=== PATIENT | male | born 1970 | race African-American/Black ===

== ENCOUNTER 2023-06-17 21:39 | Inpatient (IN) | payer OTHER ==
[2023-06-17 22:46] VITALS: BMI 37.5
[2023-06-17] MEDS ORDERED: BENZONATATE 200 MG CAPSULE PO PRN (23:33)
[2023-06-17] MEDS ORDERED: LOPERAMIDE HCL 2 MG CAPSULE PO PRN (23:33)
[2023-06-17] MEDS ORDERED: MAGNESIUM HYDROX 2400MG/30ML ORAL SUSPENSION 30 ML CUP PO PRN (23:33)
[2023-06-17] MEDS ORDERED: P-EPHED 60MG/TRIPROLIDI 2.5MG TABLET PO PRN (23:33)
[2023-06-17] MEDS ORDERED: BENZOCAINE/MENTHOL (CHLORASEPTIC ) LOZENGE MM PRN (23:33)
[2023-06-17] MEDS ORDERED: IBUPROFEN 400 MG TABLET (FP) PO PRN (23:33)
[2023-06-17] MEDS ORDERED: ACETAMINOPHEN 325 MG TABLET (FP) PO PRN (23:33)
[2023-06-17] MEDS ORDERED: POLYETHYLENE GLYCOL (HEALTHYLAX) 3350 17 GM PACKET PO PRN (23:33)
[2023-06-17] MEDS ORDERED: ONDANSETRON *ODT* 4 MG TABLET SL PRN (23:33)
[2023-06-17] MEDS ORDERED: guaiFENesin 600 MG TABLET.ER (FP) PO PRN (23:33)
[2023-06-17] MEDS ORDERED: BISMUTH SUBSALICYLATE 524 MG/30 ML PO PRN (23:33)
[2023-06-17] MEDS ORDERED: DICYCLOMINE HCL 10 MG CAPSULE PO PRN (23:33)
[2023-06-17] MEDS ORDERED: MAG HYDROX/AL HYDROX/SIMETH 30 ML UNIT-DOSE CUP PO PRN (23:33)
[2023-06-18] MEDS: METHOCARBAMOL 500 MG TABLET PO PRN ×2 (01:51→11:58)
[2023-06-18] MEDS: hydrOXYzine PAMOATE 25 MG CAPSULE (FP) PO PRN ×2 (01:51→10:16)
[2023-06-18] MEDS: LIDOCAINE PATCH REMOVAL MC SCH ×2 (01:54→22:06)
[2023-06-18] MEDS: PRENATAL VITAMINS W/ FOLIC ACID TABLET (FP) PO SCH (09:45)
[2023-06-18] MEDS: LIDOCAINE 5% TOPICAL PATCH TP SCH (09:45)
[2023-06-18] MEDS ORDERED: chlordiazePOXIDE HCL 25 MG CAPSULE PO PRN (10:06)
[2023-06-18] MEDS ORDERED: PATIENT'S OWN MEDICATION (NON-FORMULARY) (Lisinopril [Prinivil -] 40 MG Tablet) PO SCH (10:15)
[2023-06-18] MEDS: HYDROCHLOROTHIAZIDE 25 MG TABLET (FP) PO SCH (10:16)
[2023-06-18] MEDS: chlordiazePOXIDE HCL 25 MG CAPSULE PO SCH ×3 (10:17→22:03)
[2023-06-18] MEDS: FAMOTIDINE 20 MG TABLET PO SCH (10:34)
[2023-06-18] MEDS: IBUPROFEN 600 MG TABLET (FP) PO PRN (11:58)
[2023-06-18 12:21] LABS: HEMATOCRIT 33.2 % (35.4-49); HEMOGLOBIN 10.8 GM/dL (11.7-16.9); MCHC 32.4 g/dl (32.0-35.9); MEAN CELL VOLUME 95.8 fl (80-96); MEAN PLT VOLUME 7.5 fl (7.5-11.1); PLATELET COUNT 365 10^3/uL (134-434); RBC 3.47 M/mm3 (4.00-5.60); RDW 16.1 % (11.9-15.9); WHITE BLOOD COUNT 5.1 K/mm3 (4.0-10.0)
[2023-06-18 12:26] LABS: CHLORIDE 101 mmol/L (98-107); POTASSIUM 3.6 mmol/L (3.5-5.1); SODIUM 140 mmol/L (136-145)
[2023-06-18 12:43] LABS: ALBUMIN 3.9 g/dl (3.4-5.0); ANION GAP 14 mmol/L (4-13); BLOOD UREA NITROGEN 7.7 mg/dL (7-18); CO2 25 mmol/L (21-32); GLUCOSE,RANDOM 127 mg/dL (74-106)
[2023-06-18 12:46] LABS: CREATININE 0.9 mg/dL (0.55-1.3); SGOT/AST 41 U/L (15-37); SGPT/ALT 25 U/L (13-61)
[2023-06-18 12:48] LABS: TOT PROT 8.6 g/dl (6.4-8.2)
[2023-06-18 12:49] LABS: ALK PHOS 103 U/L (45-117)
[2023-06-18 12:55] LABS: CALCIUM 6.3 mg/dL (8.5-10.1)
[2023-06-18] MEDS: CALCIUM 250MG/VIT-D 125 UNITS 1 COMBO TABLET PO SCH ×2 (14:54→22:03)
[2023-06-18] MEDS: metFORMIN HCL 500 MG TABLET (FP) PO SCH (17:30)
[2023-06-18 18:17] LABS: EPI CELLS 2 /uL (0-25.1); HYALINE CASTS 0 /uL (0-3.1); PH,URINE 5.5 (5.0-8.0); URINE APPEARANCE CLEAR; URINE BACTERIA 7 /uL (0-1359); URINE BILIRUBIN NEGATIVE (NEGATIVE); URINE COLOR YELLOW; URINE GLUCOSE (UA) NEGATIVE (NEGATIVE); URINE KETONE TRACE (NEGATIVE); URINE LEUK ESTERASE NEGATIVE (NEGATIVE); URINE NITRITE NEGATIVE (NEGATIVE); URINE PROTEIN 1+ (NEGATIVE); URINE RBC 4 /uL (0-23.9); URINE WBC 4 /uL (0-25.8)
[2023-06-18] MEDS: ATORVASTATIN CA 10 MG TABLET (FP) PO SCH (22:03)
[2023-06-18] MEDS: THIAMINE HCL 100 MG TABLET (FP) PO SCH (22:03)
[2023-06-18] MEDS: MELATONIN 5 MG TABLETS PO SCH (22:04)
[2023-06-19] MEDS: hydrOXYzine PAMOATE 25 MG CAPSULE (FP) PO PRN (01:23)
[2023-06-19] MEDS: METHOCARBAMOL 500 MG TABLET PO PRN (02:31)
[2023-06-19] MEDS: chlordiazePOXIDE HCL 25 MG CAPSULE PO SCH ×4 (05:55→23:59)
[2023-06-19] MEDS: metFORMIN HCL 500 MG TABLET (FP) PO SCH ×2 (06:03→17:04)
[2023-06-19] MEDS: PRENATAL VITAMINS W/ FOLIC ACID TABLET (FP) PO SCH (10:04)
[2023-06-19] MEDS: CALCIUM 250MG/VIT-D 125 UNITS 1 COMBO TABLET PO SCH ×2 (10:04→22:19)
[2023-06-19] MEDS: HYDROCHLOROTHIAZIDE 25 MG TABLET (FP) PO SCH (10:04)
[2023-06-19] MEDS: LIDOCAINE 5% TOPICAL PATCH TP SCH (10:04)
[2023-06-19] MEDS: FAMOTIDINE 20 MG TABLET PO SCH (10:04)
[2023-06-19] MEDS ORDERED: diphenhydrAMINE HCL 50 MG CAPSULE PO PRN (11:19)
[2023-06-19] MEDS: amLODIPine BESYLATE 5 MG TABLET (FP) PO SCH (12:13)
[2023-06-19] MEDS: THIAMINE HCL 100 MG TABLET (FP) PO SCH (22:19)
[2023-06-19] MEDS: MELATONIN 5 MG TABLETS PO SCH (22:19)
[2023-06-19] MEDS: ATORVASTATIN CA 10 MG TABLET (FP) PO SCH (22:22)
[2023-06-19] MEDS: LIDOCAINE PATCH REMOVAL MC SCH (22:22)
[2023-06-20] MEDS ORDERED: chlordiazePOXIDE HCL 10 MG CAPSULE PO PRN
[2023-06-20] MEDS: chlordiazePOXIDE HCL 10 MG CAPSULE PO SCH ×4 (05:23→22:08)
[2023-06-20] MEDS: metFORMIN HCL 500 MG TABLET (FP) PO SCH ×2 (06:26→16:44)
[2023-06-20] MEDS: LIDOCAINE 4% PATCH TP SCH (10:31)
[2023-06-20] MEDS: PRENATAL VITAMINS W/ FOLIC ACID TABLET (FP) PO SCH (10:31)
[2023-06-20] MEDS: amLODIPine BESYLATE 5 MG TABLET (FP) PO SCH (10:31)
[2023-06-20] MEDS: FAMOTIDINE 20 MG TABLET PO SCH (10:31)
[2023-06-20] MEDS: CALCIUM 250MG/VIT-D 125 UNITS 1 COMBO TABLET PO SCH ×2 (10:31→22:07)
[2023-06-20] MEDS: HYDROCHLOROTHIAZIDE 25 MG TABLET (FP) PO SCH (10:32)
[2023-06-20] MEDS: MELATONIN 5 MG TABLETS PO SCH (22:07)
[2023-06-20] MEDS: THIAMINE HCL 100 MG TABLET (FP) PO SCH (22:07)
[2023-06-20] MEDS: ATORVASTATIN CA 10 MG TABLET (FP) PO SCH (22:08)
[2023-06-20] MEDS: LIDOCAINE PATCH REMOVAL MC SCH (22:09)
[2023-06-21] MEDS: IBUPROFEN 600 MG TABLET (FP) PO PRN (02:12)
[2023-06-21] MEDS: chlordiazePOXIDE HCL 10 MG CAPSULE PO SCH ×2 (05:51→17:36)
[2023-06-21] MEDS: metFORMIN HCL 500 MG TABLET (FP) PO SCH ×2 (06:15→16:35)
[2023-06-21] MEDS: amLODIPine BESYLATE 5 MG TABLET (FP) PO SCH (09:31)
[2023-06-21] MEDS: HYDROCHLOROTHIAZIDE 25 MG TABLET (FP) PO SCH (09:31)
[2023-06-21] MEDS: FAMOTIDINE 20 MG TABLET PO SCH (09:31)
[2023-06-21] MEDS: PRENATAL VITAMINS W/ FOLIC ACID TABLET (FP) PO SCH (09:31)
[2023-06-21] MEDS: CALCIUM 250MG/VIT-D 125 UNITS 1 COMBO TABLET PO SCH ×2 (09:32→22:12)
[2023-06-21] MEDS: LIDOCAINE 4% PATCH TP SCH (09:32)
[2023-06-21 16:54] VITALS: RESP 18
[2023-06-21] MEDS: MELATONIN 5 MG TABLETS PO SCH (22:11)
[2023-06-21] MEDS: THIAMINE HCL 100 MG TABLET (FP) PO SCH (22:11)
[2023-06-21] MEDS: ATORVASTATIN CA 10 MG TABLET (FP) PO SCH (22:12)
[2023-06-21] MEDS: LIDOCAINE PATCH REMOVAL MC SCH (22:27)
[2023-06-22] MEDS ORDERED: chlordiazePOXIDE HCL 10 MG CAPSULE PO ONE (05:00)
[2023-06-22] MEDS: metFORMIN HCL 500 MG TABLET (FP) PO SCH (06:01)
[2023-06-22] MEDS: PRENATAL VITAMINS W/ FOLIC ACID TABLET (FP) PO SCH (09:04)
[2023-06-22] MEDS: FAMOTIDINE 20 MG TABLET PO SCH (09:04)
[2023-06-22] MEDS: HYDROCHLOROTHIAZIDE 25 MG TABLET (FP) PO SCH (09:04)
[2023-06-22] MEDS: amLODIPine BESYLATE 5 MG TABLET (FP) PO SCH (09:04)
[2023-06-22] MEDS: CALCIUM 250MG/VIT-D 125 UNITS 1 COMBO TABLET PO SCH (09:04)
[2023-06-22] MEDS: LIDOCAINE 4% PATCH TP SCH (09:05)
[2023-06-22 09:27] VITALS: BP 149/88; PULSE 102; TEMP 98.1
== END 2023-06-22 10:55 | disposition home or self-care (01) | DRG 775 ==
LOC: YASAS 21:39 → Y6N 06-18 01:26
PROVIDERS: ADMIT Allergy & Immunology; ATTEND Surgery
PROC: HZ2ZZZZ Detoxification Services for Substance Abuse Treatment (ICD-10-PCS; principal; 2023-06-18)
DX: F10.230 Alcohol dependence with withdrawal, uncomplicated (principal); E83.51 Hypocalcemia; R78.5 Finding of other psychotropic drug in blood; I10 Essential (primary) hypertension; K21.9 Gastro-esophageal reflux disease without esophagitis; E11.9 Type 2 diabetes mellitus without complications; Z79.84 Long term (current) use of oral hypoglycemic drugs; Z88.8 Allergy status to other drugs, medicaments and biological substances
CPT/HCPCS: 36415; 80053; 80307; 81003; 82962; 85027; 86780; 87635; Q0162